=== PATIENT | female | born 1970 | race Caucasian/White ===

== ENCOUNTER → 2025-04-04 14:39 | Outpatient (REF) | payer OTHER, SELFPAY | LOC: PAVMRI 14:39 | PROVIDERS: ATTENDING PHYSICIAN Otolaryngology | DX: H90.A32 Mixed conductive and sensorineural hearing loss, unilateral, left ear with restricted hearing on the contralateral side (principal) | CPT/HCPCS: 70553; A9575 ==

== ENCOUNTER → 2025-11-02 13:40 | Outpatient (REF) | payer OTHER, SELFPAY | LOC: RAD 13:40 | PROVIDERS: ATTENDING PHYSICIAN Obstetrics & Gynecology; FAMILY PHYSICIAN Nurse Practitioner | DX: M85.89 Other specified disorders of bone density and structure, multiple sites (principal) | CPT/HCPCS: 77080 ==